=== PATIENT | female | born 1945 | race Caucasian/White ===

== ENCOUNTER → 2018-10-19 | Outpatient (CLI) | payer MEDICARE | LOC: M.RAD 10-12 10:00 | DX: Z12.31 Encounter for screening mammogram for malignant neoplasm of breast (principal) ==

== ENCOUNTER → 2020-08-10 | Outpatient (CLI) | payer MEDICARE | LOC: M.RAD 11:37 | PROVIDERS: ATTEND Family Medicine | DX: Z12.31 Encounter for screening mammogram for malignant neoplasm of breast (principal); R06.00 Dyspnea, unspecified; M54.6 Pain in thoracic spine; I10 Essential (primary) hypertension; J84.9 Interstitial pulmonary disease, unspecified ==

== ENCOUNTER → 2020-11-17 | Outpatient (CLI) | payer MEDICARE | LOC: M.ULTRA 11-13 10:39 | PROVIDERS: ATTEND Family Medicine | DX: N85.8 Other specified noninflammatory disorders of uterus (principal); R93.89 Abnormal findings on diagnostic imaging of other specified body structures; N93.9 Abnormal uterine and vaginal bleeding, unspecified; N32.89 Other specified disorders of bladder; Z90.5 Acquired absence of kidney ==